=== PATIENT | female | born 1990 | race Caucasian/White ===

== ENCOUNTER 2017-05-23 00:53 | Emergency (ER) | payer OTHER ==
[~2017-05-23] VITALS: Ht 165.1 cm; Wt 94.3 kg
[~2017-05-23 00:53] MED LIST: ACYCLOVIR800 MG PO; AMLODIPINE10 M1 PO; AMOXICILLIN 8751 TAB PO; ASTAGRAF XL0.5 MG PO; BACTRIM DS1 TAB PO; CEL500 PO; CELEXA10 MG PO; CELLCEPT500 M1 PO; CELLCEPT500 MG PO; HECORIA1 M1 PO; LAC PO; LEVAQUIN500 MG PO; MAGNESIUM OXID400 MG; METOPROLOL SUCC25 M1; METOPROLOL SUCC25 M1 PO; MG PLUS PROTEI133 MG PO; MP MAGNESIUM100 MG PO; NORCO1 TA1 PO; PEPCID40 MG PO; PRE10 PO; PREDNISONE10 MG PO; PREDNISONE20 MG PO; PRO40 PO; PROGRAF1 MG PO; SULFAMETH/TRIME1 TA4 PO; VITAMIN D2000 I3 PO; ZESTRIL20 PO; ZOVIRAX800 MG PO
[2017-05-23 02:32] VITALS: BP 130/75
== END 2017-05-23 02:32 | disposition home or self-care (01) ==
LOC: ED 00:53
DX: J20.9 Acute bronchitis, unspecified (principal); M94.0 Chondrocostal junction syndrome [Tietze]; K21.9 Gastro-esophageal reflux disease without esophagitis; I10 Essential (primary) hypertension
CPT/HCPCS: J0696; Q0162

== ENCOUNTER 2017-06-02 17:50 | Inpatient (IN) | payer OTHER ==
[~2017-06-02] VITALS: Ht 167.6 cm; Wt 81.2 kg
[~2017-06-02 17:50] MED LIST changes: -VITAMIN D2000 I3 PO; +VITAMIN D32000 I2 PO
[2017-06-02 18:56] LABS: UA SPECIFIC GRAVITY 1.015 (1.005-1.035); microscopic required? YES; urine erythrocyte TRACE (NEGATIVE)
[2017-06-02 19:14] LABS: BASOPHIL % 0.3 % (0-2); PLATELET COUNT 213 x10^3mcL (130-400)
[2017-06-02 19:18] LABS: RED CELL DISTRIBUTION WIDTH 15.1 % (11.5-14.5)
[2017-06-02 19:27] LABS: CALCIUM 8.6 mg/dL (8.5-10.1); CARBON DIOXIDE 28.4 mmol/L (21-32); CREATININE SERUM 1.4 mg/dL (0.6-1.0); POTASSIUM SERUM 3.1 mmol/L (3.5-5.1)
[2017-06-02 19:32] LABS: ALBUMIN 3.6 g/dL (3.4-5.0); BILIRUBIN TOTAL 0.6 mg/dL (0.20-1.00); TOTAL PROTEIN, SERUM 7.6 g/dL (6.4-8.2)
[2017-06-02 21:31] VITALS: BP 118/74
[2017-06-02 21:38] VITALS: BP 118/74
[2017-06-03 05:19] VITALS: BP 125/56
[2017-06-03 07:48] LABS: PLATELET COUNT 190 x10^3mcL (130-400)
[2017-06-03 07:59] LABS: CALCIUM 8.4 mg/dL (8.5-10.1); CARBON DIOXIDE 22.7 mmol/L (21-32); CHLORIDE SERUM 109 mmol/L (98-107); CREATININE SERUM 1.1 mg/dL (0.6-1.0); GFR1 > 60 mL/min; GLUCOSE SERUM 128 mg/dL (74-106); MAGNESIUM 1.9 mg/dL (1.8-2.4); POTASSIUM SERUM 4.2 mmol/L (3.5-5.1); SODIUM SERUM 139 mmol/L (136-145)
[2017-06-03 08:02] LABS: BASOPHIL % 0 % (0-2); RED CELL DISTRIBUTION WIDTH 15.1 % (11.5-14.5)
[2017-06-03 08:48] VITALS: BP 112/59
[2017-06-03 16:53] VITALS: BP 104/56
[2017-06-03 18:03] VITALS: BP 104/56
== END 2017-06-03 18:33 | disposition home or self-care (01) | DRG 463 ==
LOC: ED 17:50 → DU 20:42 → MU 21:19
PROVIDERS: Emergency Medicine; ADMIT Internal Medicine Pulmonary Disease
DX: N12 Tubulo-interstitial nephritis, not specified as acute or chronic (principal); Z94.0 Kidney transplant status; I10 Essential (primary) hypertension
CPT/HCPCS: 83880; J0696; J1956; J2930; J7030; J7507; J7510; J7517; Q0092

== ENCOUNTER 2019-01-27 21:35 | Emergency (ER) | payer OTHER ==
[~2019-01-27] VITALS: Ht 170.2 cm; Wt 100.5 kg
[2019-01-27 22:04] VITALS: Ht 170.2 cm; Wt 100.5 kg
[2019-01-27 23:30] VITALS: BP 120/74
== END 2019-01-27 23:30 | disposition home or self-care (01) ==
LOC: ED 21:35
DX: M54.40 Lumbago with sciatica, unspecified side (principal); I10 Essential (primary) hypertension; F41.9 Anxiety disorder, unspecified; Z94.0 Kidney transplant status
CPT/HCPCS: J1885

== ENCOUNTER 2020-05-06 17:10 | Emergency (ER) | payer OTHER ==
[~2020-05-06] VITALS: Ht 167.6 cm; Wt 95.3 kg
[2020-05-06 17:11] VITALS: Ht 167.6 cm; Wt 95.3 kg
[2020-05-06 18:17] LABS: BASOPHIL % 0.3 % (0-2); PLATELET COUNT 320 x10^3mcL (130-400); RED CELL DISTRIBUTION WIDTH 13.3 % (11.5-14.5)
[2020-05-06 18:31] LABS: CALCIUM 9.4 mg/dL (8.5-10.1); CARBON DIOXIDE 28.1 mmol/L (21-32); CREATININE SERUM 1.4 mg/dL (0.6-1.0); POTASSIUM SERUM 3.8 mmol/L (3.5-5.1)
[2020-05-06 18:38] LABS: ALBUMIN 4.3 g/dL (3.4-5.0); BILIRUBIN TOTAL 0.9 mg/dL (0.20-1.00)
[2020-05-06 18:42] LABS: TOTAL PROTEIN, SERUM 8.6 g/dL (6.4-8.2)
[2020-05-06] MEDS ORDERED: MILLIPRED5 M1 PO (19:55)
[2020-05-06] MEDS ORDERED: NASAL MIST126 ML (19:55)
[2020-05-06 21:15] VITALS: BP 109/56
== END 2020-05-06 21:15 | disposition short-term general hospital (02) ==
LOC: ED 17:10
PROVIDERS: Emergency Medicine
DX: R94.4 Abnormal results of kidney function studies (principal); R11.2 Nausea with vomiting, unspecified; I10 Essential (primary) hypertension; Z94.0 Kidney transplant status
CPT/HCPCS: J2270; J2405; J7030; Q0092

== ENCOUNTER 2020-05-10 23:52 | Emergency (ER) | payer OTHER, SELFPAY ==
[~2020-05-10] VITALS: Ht 167.6 cm; Wt 81.6 kg
[~2020-05-10 23:52] MED LIST changes: +MILLIPRED5 M1 PO; +NASAL MIST126 ML
[2020-05-10 23:53] VITALS: Ht 167.6 cm; Wt 81.6 kg
[2020-05-11 01:09] LABS: BASOPHIL % 0.5 % (0-2); PLATELET COUNT 265 x10^3mcL (130-400); RED CELL DISTRIBUTION WIDTH 13.3 % (11.5-14.5)
[2020-05-11 01:16] LABS: CALCIUM 8.9 mg/dL (8.5-10.1); CARBON DIOXIDE 23.7 mmol/L (21-32); CREATININE SERUM 1.4 mg/dL (0.6-1.0); POTASSIUM SERUM 3.4 mmol/L (3.5-5.1)
[2020-05-11 01:23] LABS: ALBUMIN 3.8 g/dL (3.4-5.0); BILIRUBIN TOTAL 0.56 mg/dL (0.20-1.00); TOTAL PROTEIN, SERUM 7.6 g/dL (6.4-8.2)
[2020-05-11 02:38] VITALS: BP 102/82
== END 2020-05-11 02:39 | disposition home or self-care (01) ==
LOC: ED 23:52
PROVIDERS: Emergency Medicine
DX: K29.70 Gastritis, unspecified, without bleeding (principal); I10 Essential (primary) hypertension
CPT/HCPCS: J2270; J2405

== ENCOUNTER 2020-07-08 13:32 | Emergency (ER) | payer OTHER, SELFPAY ==
[~2020-07-08] VITALS: Ht 167.6 cm; Wt 83.9 kg
[2020-07-08 13:34] VITALS: Ht 167.6 cm; Wt 83.9 kg
[2020-07-08 15:04] LABS: microscopic required? NO
[2020-07-08 15:05] LABS: BASOPHIL % 0.4 % (0-2); PLATELET COUNT 261 x10^3mcL (130-400); RED CELL DISTRIBUTION WIDTH 13.5 % (11.5-14.5)
[2020-07-08 15:13] LABS: CALCIUM 9.4 mg/dL (8.5-10.1); CARBON DIOXIDE 25.7 mmol/L (21-32); CREATININE SERUM 1.4 mg/dL (0.6-1.0); POTASSIUM SERUM 3.7 mmol/L (3.5-5.1)
[2020-07-08 15:19] LABS: ALBUMIN 3.8 g/dL (3.4-5.0); BILIRUBIN TOTAL 0.96 mg/dL (0.20-1.00); C REACTIVE PROTEIN 0.8 mg/dL (<=0.9)
[2020-07-08 15:45] LABS: urine erythrocyte NEGATIVE (NEGATIVE)
[2020-07-08 17:12] VITALS: BP 120/78
== END 2020-07-08 17:13 | disposition home or self-care (01) ==
LOC: ED 13:32
PROVIDERS: Emergency Medicine
DX: R10.813 Right lower quadrant abdominal tenderness (principal); M79.10 Myalgia, unspecified site; I10 Essential (primary) hypertension; Z20.828 Contact with and (suspected) exposure to other viral communicable diseases
CPT/HCPCS: 36600; 83880; 85378; 87804; J2270; J2405; U0003

== ENCOUNTER 2020-08-08 20:42 | Emergency (ER) | payer OTHER, SELFPAY ==
[~2020-08-08] VITALS: Ht 170.2 cm; Wt 81.6 kg
[2020-08-08 20:45] VITALS: BP 129/74; Ht 170.2 cm; Wt 81.6 kg
== END 2020-08-08 22:43 | disposition left against medical advice (07) ==
LOC: ED 20:42
DX: Z53.21 Procedure and treatment not carried out due to patient leaving prior to being seen by health care provider (principal)

== ENCOUNTER 2020-08-09 01:28 | Emergency (ER) | payer OTHER ==
[~2020-08-09] VITALS: Ht 170.2 cm; Wt 81.6 kg
[2020-08-09 01:29] VITALS: Ht 170.2 cm; Wt 81.6 kg
[2020-08-09 04:05] LABS: BASOPHIL % 0.2 % (0.2-1.3); PLATELET COUNT 270 x10^3mcL (179-408); RED CELL DISTRIBUTION WIDTH 13.9 % (12.3-17.7)
[2020-08-09 04:35] LABS: CALCIUM 9.6 mg/dL (8.5-10.1); CARBON DIOXIDE 21.9 mmol/L (21-32); CREATININE SERUM 1.4 mg/dL (0.6-1.0); POTASSIUM SERUM 4.2 mmol/L (3.5-5.1)
[2020-08-09 04:39] LABS: ALBUMIN 4.1 g/dL (3.4-5.0); BILIRUBIN TOTAL 0.72 mg/dL (0.20-1.00)
[2020-08-09 04:41] LABS: TOTAL PROTEIN, SERUM 8.5 g/dL (6.4-8.2)
[2020-08-09 07:48] VITALS: BP 126/78
== END 2020-08-09 07:48 | disposition home or self-care (01) ==
LOC: ED 01:28
PROVIDERS: Emergency Medicine
DX: R10.9 Unspecified abdominal pain (principal); R11.2 Nausea with vomiting, unspecified; R19.7 Diarrhea, unspecified; I10 Essential (primary) hypertension
CPT/HCPCS: J2270; J2405